=== PATIENT | male | born 1985 | race Caucasian/White ===

== ENCOUNTER 2018-05-18 19:07 | Emergency (ER) | payer SELFPAY ==
[~2018-05-18] VITALS: Ht 170.2 cm; Wt 59.9 kg
[2018-05-18 19:19] VITALS: BP 109/79
[2018-05-18] MEDS ORDERED: IBUPROFEN 400 MG TAB PO ONE (22:20)
[2018-05-18 22:49] VITALS: BP 109/79
== END 2018-05-18 22:49 | disposition home or self-care (01) ==
LOC: MED 19:07
DX: S39.012A Strain of muscle, fascia and tendon of lower back, initial encounter (principal); F31.9 Bipolar disorder, unspecified; X58.XXXA Exposure to other specified factors, initial encounter; Y93.89 Activity, other specified; Y92.89 Other specified places as the place of occurrence of the external cause; Y99.8 Other external cause status
CPT/HCPCS: 99283

== ENCOUNTER 2019-05-07 19:08 | Emergency (ER) | payer SELFPAY ==
[~2019-05-07] VITALS: Ht 172.7 cm; Wt 77.1 kg
--- NOTE | 2019-05-07 19:32 | NUR ---
PT DARLENE BLS. TAKEN TO BED 7
[2019-05-07 19:35] VITALS: BP 115/74
--- NOTE | 2019-05-07 19:36 | NUR ---
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
--- NOTE | 2019-05-07 19:40 | NUR ---
33 Y/O MALE BIBA BLS C/O TOOTH PAIN X1 YEAR. PT DENIES GUM PAIN. NO NOTED DEFORMITIES, NO BLEEDING AT THIS TIME. RR EVEN AND UNLABORED. PT POSITIONED FOR COMFORT. VSS MEDHX: MENTAL DISABILITY ALLERGIES: NKA
--- NOTE | 2019-05-07 19:44 | NUR ---
SPOKE TO LADLE CLEANER NABILA ABOUT PT. NABILA MADE AWARE OF LOCATION OF PT. WILL CALL LADLE CLEANER WHEN PT READY FOR DISCHARGE.
[2019-05-07] MEDS ORDERED: IBUPROFEN 600 MG TAB PO ONE (19:55)
--- NOTE | 2019-05-07 20:04 | NUR ---
Dr. Lopez examining patient.
--- NOTE | 2019-05-07 20:06 | NUR ---
PT SCHEDULER CONVEYORNABILA STATES HE WOULD BE AT ER TO [facility] PT IN 15 MINUTES.
[2019-05-07 20:32] VITALS: BP 115/74
--- NOTE | 2019-05-07 20:33 | NUR ---
Patient discharged with v/s stable. Written and verbal after care instructions given and explained. Patient verbalized understanding. Ambulatory with steady gait. All questions addressed prior to discharge. Advised to follow up with PMD. REFERRAL TO DENTIST GIVEN.
== END 2019-05-07 20:33 | disposition home or self-care (01) ==
LOC: MED 19:08
DX: K08.89 Other specified disorders of teeth and supporting structures (principal); F20.9 Schizophrenia, unspecified; F90.9 Attention-deficit hyperactivity disorder, unspecified type
CPT/HCPCS: 99283

== ENCOUNTER 2023-09-28 10:22 | Emergency (ER) | payer MEDICAID ==
[~2023-09-28] VITALS: Ht 175.3 cm; Wt 86.2 kg
[2023-09-28 10:30] VITALS: BP 110/70; PULSE 106; RESP 18; TEMP 97.8; O2SAT 97
[2023-09-28 10:45] VITALS: O2SAT 97
[2023-09-28 15:00] VITALS: BP 112/74; PULSE 90; RESP 18; TEMP 98.3; O2SAT 95
== END 2023-09-28 15:00 | disposition home or self-care (01) ==
LOC: MED 10:22
DX: S09.90XA Unspecified injury of head, initial encounter (principal); Y00.XXXA Assault by blunt object, initial encounter; Y93.89 Activity, other specified; Y92.099 Unspecified place in other non-institutional residence as the place of occurrence of the external cause; Y99.8 Other external cause status
CPT/HCPCS: 70450; 99284